=== PATIENT | female | born 1990 | race Caucasian/White ===

== ENCOUNTER 2019-06-04 09:18 | Emergency (ER) | payer OTHER ==
[2019-06-04 09:28] VITALS: TEMP 98.4; BMI 25.1
--- NOTE | 2019-06-04 10:12 | PDOC ---
History of Present Illness - General Chief Complaint: Vaginal Bleeding Stated Complaint: VAG BLEED Time Seen by Provider: 06/04/19 09:57 - History of Present Illness Initial Comments: Ariadna Wells is a A1 28 y/o female with no significant PMH presenting today with post-coital vaginal bleeding that started yesterday. Reports vaginal bleeding after sexual intercourse and when she is urinating but not otherwise. Reports that her periods have lasted longer than usual since her IUD (8 days from 4 days). No other complaints. No fever/chills. No chest pain/shortness of breath. No dysuria. No blood in the stool. No abdominal pain. LNMP 1 week ago. Past History - Past Medical History Allergies/Adverse Reactions: Allergies Allergy/AdvReac Type Severity Reaction Status Date / Time No Known Allergies Allergy Verified 06/04/19 09:25 Home Medications: Ambulatory Orders Vitamins (Sjr) - 1 tab PO DAILY 12/25/14 Acetaminophen [Tylenol .Regular Strength -] 650 mg PO Q3H PRN #0 tablet Benzocaine [Americaine 20% [place] -] 1 spray TP PRN PRN #0 bottle 12/27/14 Ferrous Sulfate 325 mg PO BID #60 tablet 12/27/14 Ferrous Sulfate [Feosol] 325 mg PO BID #60 ud 12/27/14 Ibuprofen [Motrin -] 200 mg PO Q4H PRN #0 tablet 12/27/14 Vitamins (Sjr) - 1 tab PO DAILY tablet 12/27/14 Witch [place] 50% (Tucks) [Tucks Pads -] 1 pad TP PRN PRN #0 pad 12/27/14 Asthma: No Cancer: No Cardiac Disorders: No COPD: No Diabetes: No HTN: No Seizures: No Thyroid Disease: No - Reproductive History Is Patient Now?: No - Immunization History Immunization Up to Date: Yes - Psycho Social/Smoking Cessation Hx Smoking Status: No Smoking History: Never smoked Have you smoked in the past 12 months: No Number of Cigarettes Smoked Daily: 0 Hx Alcohol Use: Yes (prior to ) Drug/Substance Use Hx: No Substance Use Type: None Hx Substance Use Treatment: No Review of Systems - Review of Systems Comments:: GENERAL/CONSTITUTIONAL: No fever or chills. No weakness._ HEAD, EYES, EARS, NOSE AND THROAT: No change in vision. No change in hearing. No sore throat._ CARDIOVASCULAR: No chest pain or shortness of breath_ RESPIRATORY: Denies cough, hemoptysis_ GASTROINTESTINAL: No nausea, vomiting, diarrhea or constipation._ GENITOURINARY: Reports vaginal bleeding. Denies dysuria. MUSCULOSKELETAL: No joint or muscle swelling or pain. No neck or back pain._ SKIN: No rash_ NEUROLOGIC: No headache, vertigo, loss of consciousness, or change in strength/ sensation._ ENDOCRINE: No increased thirst. No abnormal weight change_ HEMATOLOGIC/LYMPHATIC: No anemia, easy bleeding, or history of blood clots._ ALLERGIC/IMMUNOLOGIC: No hives or skin allergy._ *Physical Exam - Vital Signs Last Vital Signs Temp Pulse Resp BP Pulse Ox 98.4 F 76 18 137/80 100 06/04/19 09:23 06/04/19 09:23 06/04/19 09:23 06/04/19 09:23 06/04/19 09:23 - Physical Exam GENERAL: Awake, alert, and oriented to person/place/time, in no acute distress_ HEAD: No signs of trauma, normoc ephalic, atraumatic _ EYES: PERRLA, EOMI, sclera anicteric, conjunctiva clear_ ENT: Hearing grossly normal, nares patent, oropharynx clear without exudates. No uvular deviation. Moist mucosa_ NECK: Normal ROM, supple, no lymphadenopathy, JVD, or masses_ LUNGS: No distress, speaks in full sentences, clear to auscultation bilaterally _ HEART: Regular rate and rhythm, normal S1 and S2, no murmurs appreciated, peripheral pulses normal and equal bilaterally._ ABDOMEN: Soft, nontender, normoactive bowel sounds. No guarding, no rebound. No masses_ EXTREMITIES: Normal inspection, Normal range of motion, no edema. No clubbing or cyanosis_ NEUROLOGICAL: Cranial nerves II through XII grossly intact. Normal speech, normal gait, no focal sensorimotor deficits _ SKIN: Warm, Dry, normal turgor, no rashes or lesions noted_ PELVIC: Normal external exam with minimal bleeding noted. No laceration or trauma to the vaginal vault. Minimal dark red blood in the posterior fornix. Os closed. Negative CMT. No adnexal tenderness bilaterally. ED Treatment Course - LABORATORY CBC & Chemistry Diagram: 06/04/19 10:20 06/04/19 10:07 Medical Decision Making - Medical Decision Making 06/04/19 10:26 28F A1 presenting with post-coital vaginal bleeding that started yesterday. -cbc, cmp -ua, ucx, upreg -GC swab 06/04/19 13:20 Labs reviewed. Laboratory Last Values WBC 5.7 K/mm3 (4.0-10.0) 06/04/19 10:20 RBC 4.37 M/mm3 (3.60-5.2) 06/04/19 10:20 Hgb 13.6 GM/dL (10.7-15.3) 06/04/19 10:20 Hct 40.7 % (32.4-45.2) D 06/04/19 10:20 MCV 93.1 fl (80-96) 06/04/19 10:20 MCH 31.2 pg (25.7-33.7) 06/04/19 10:20 MCHC 33.5 g/dl (32.0-36.0) 06/04/19 10:20 RDW 13.5 % (11.6-15.6) 06/04/19 10:20 Plt Count 327 K/MM3 (134-434) D 06/04/19 10:20 MPV 7.4 fl (7.5-11.1) L 06/04/19 10:20 Absolute Neuts (auto) 2.9 K/mm3 (1.5-8.0) 06/04/19 10:20 Neutrophils % 50.1 % (42.8-82.8) 06/04/19 10:20 Lymphocytes % 38.0 % (8-40) 06/04/19 10:20 Monocytes % 9.7 % (3.8-10.2) 06/04/19 10:20 Eosinophils % 1.7 % (0-4.5) 06/04/19 10:20 Basophils % 0.5 % (0-2.0) 06/04/19 10:20 Nucleated RBC % 0 % (0-0) 06/04/19 10:20 Sodium 140 mmol/L (136-145) 06/04/19 10:07 Potassium 4.2 mmol/L (3.5-5.1) 06/04/19 10:07 Chloride 108 mmol/L (98-107) H 06/04/19 10:07 Carbon Dioxide 27 mmol/L (21-32) 06/04/19 10:07 Anion Gap 5 MMOL/L (8-16) L 06/04/19 10:07 BUN 6.3 mg/dL (7-18) L 06/04/19 10:07 Creatinine 0.7 mg/dL (0.55-1.3) 06/04/19 10:07 Est GFR (CKD-EPI)AfAm 137.62 06/04/19 10:07 Est GFR (CKD-EPI)NonAf 118.74 06/04/19 10:07 Random Glucose 88 mg/dL (74-106) 06/04/19 10:07 Calcium 9.4 mg/dL (8.5-10.1) 06/04/19 10:07 Total Bilirubin 0.4 mg/dL (0.2-1) 06/04/19 10:07 AST 30 U/L (15-37) 06/04/19 10:07 ALT 41 U/L (13-61) 06/04/19 10:07 Alkaline Phosphatase 85 U/L (45-117) 06/04/19 10:07 Total Protein 7.8 g/dl (6.4-8.2) 06/04/19 10:07 Albumin 3.8 g/dl (3.4-5.0) 06/04/19 10:07 Urine Color Yellow 06/04/19 12:00 Urine Appearance Clear 06/04/19 12:00 Urine pH 8.0 (5.0-8.0) 06/04/19 12:00 Ur Specific [place] 1.007 (1.010-1.035) L 06/04/19 12:00 Urine Protein Negative (NEGATIVE) 06/04/19 12:00 Urine Glucose (UA) Negative (NEGATIVE) 06/04/19 12:00 Urine Ketones Negative (NEGATIVE) 06/04/19 12:00 Urine Blood 1+ (NEGATIVE) H 06/04/19 12:00 Urine Nitrite Negative (NEGATIVE) 06/04/19 12:00 Urine Bilirubin Negative (NEGATIVE) 06/04/19 12:00 Urine Urobilinogen 0.2 mg/dL (0.2-1.0) 02/09/20 12:00 Ur Leukocyte Esterase Negative (NEGATIVE) 06/04/19 12:00 Urine WBC (Auto) 0 /hpf (0-5) 06/04/19 12:00 Urine RBC (Auto) 2 /hpf (0-4) 06/04/19 12:00 Urine Casts (Auto) 0 /lpf (0-8) 06/04/19 12:00 U Epithel Cells (Auto) 0.3 /HPF (0-5/HPF) 06/04/19 12:00 Urine Bacteria (Auto) 2.4 /hpf (NEGATIVE) 06/04/19 12:00 Urine HCG, Qual Negative 06/04/19 13:16 Pt reassessed. Plan to d/c home with OBGYN f/u. All questions answered. Return precautions given. Pt verbalized understanding and agreement with plan. Discharge - Discharge Information Problems reviewed: Yes Clinical Impression/Diagnosis: PCB (post coital bleeding) Condition: Stable Disposition: HOME - Admission No - Follow up/Referral Referrals: Wild Kohli MD [Primary Care Provider] - Ely Ventura MD [Staff Physician] - - Patient Discharge Instructions Patient Printed Discharge Instructions: DI for Vaginal Bleeding Additional Instructions: Please make a follow up appointment with your OBGYN Dr. Mack. Please abstain from sexual intercourse until you are evaluated by your OBGYN. If you experience any new, worsening, or concerning symptoms, including pain in the pelvic area, fever, chills, or any other concerns, please return to the emergency department. - Post Discharge Activity
[2019-06-04 10:52] LABS: BASO % 0.5 % (0-2.0); EOS % 1.7 % (0-4.5); HEMATOCRIT 40.7 % (32.4-45.2); HEMOGLOBIN 13.6 GM/dL (10.7-15.3); MCH 31.2 pg (25.7-33.7); MCHC 33.5 g/dl (32.0-36.0); MEAN CELL VOLUME 93.1 fl (80-96); MEAN PLT VOLUME 7.4 fl (7.5-11.1); MONO % 9.7 % (3.8-10.2); NEUT % 50.1 % (42.8-82.8); PLATELET COUNT 327 K/MM3 (134-434); RBC 4.37 M/mm3 (3.60-5.2); RDW 13.5 % (11.6-15.6); WHITE BLOOD COUNT 5.7 K/mm3 (4.0-10.0)
[2019-06-04 11:10] LABS: ALBUMIN 3.8 g/dl (3.4-5.0); BILIRUBIN,TOTAL 0.4 mg/dL (0.2-1); BLOOD UREA NITROGEN 6.3 mg/dL (7-18); CALCIUM 9.4 mg/dL (8.5-10.1); CREATININE 0.7 mg/dL (0.55-1.3); POTASSIUM 4.2 mmol/L (3.5-5.1); TOT PROT 7.8 g/dl (6.4-8.2)
--- NOTE | 2019-06-04 12:10 | PDOC ---
Documentation entered by Theo Lara SCRIBE, acting as scribe for Mere Gonzalez MD. Mere Gonzalez MD: This documentation has been prepared by the Marco malik Daniel, SCRIBE, under my direction and personally reviewed by me in its entirety. I confirm that the documentation accurately reflects all work, treatment, procedures, and medical decision making performed by me. Attending Attestation - Resident Resident Name: Aaron Mclean - ED Attending Attestation I have performed the following: I have examined & evaluated the patient, The case was reviewed & discussed with the resident, I agree w/resident's findings & plan, Exceptions are as noted - HPI HPI: 06/04/19 10:29 The patient is a 28 year old A1 female with no past medical history here today for evaluation of vaginal bleeding. The patient reports that her vaginal bleeding began yesterday after intercourse and states that it only occurs when she is urinating or after intercourse. She states that the bleeding is mild and has not used any pads for it. Patient states that she had a mild cramp today but otherwise denies any pain. She denies any similar episodes in the past. Patient does report that she had an IUD placed 2 years ago. Patient denies headache, lightheadedness. Denies fever, chills. Denies chest pain, shortness of breath. Denies nausea, vomiting, diarrhea, abdominal pain. Denies dysuria. LMP: 1 week ago Allergies: NKA PCP: Wild Kohli OBGYN: Ely Ventura - Physicial Exam PE: 06/04/19 11:05 GENERAL: Awake, alert, and fully oriented, in no acute distress ABDOMEN: Soft, nontender, normoactive bowel sounds. No guarding, no rebound. No masses - Medical Decision Making 06/04/19 12:03 Pt presents to the ED complaining of slight vaginal bleeding with wiping and intercourse. Pelvic exam is unremarkable except for scant blood in the posterior fornix. Will discharge home with instructions to follow up with PCP.
[2019-06-04 12:33] LABS: EPI CELLS 0.3 /HPF (0-5/HPF); HYALINE CASTS 0 /lpf (0-8); URINE APPEARANCE CLEAR; URINE BACTERIA 2.4 /hpf (NEGATIVE); URINE BILIRUBIN NEGATIVE (NEGATIVE); URINE COLOR YELLOW; URINE GLUCOSE (UA) NEGATIVE (NEGATIVE); URINE KETONE NEGATIVE (NEGATIVE); URINE LEUK ESTERASE NEGATIVE (NEGATIVE); URINE NITRITE NEGATIVE (NEGATIVE); URINE PROTEIN NEGATIVE (NEGATIVE); URINE RBC 2 /hpf (0-4); URINE UROBILINOGEN 0.2 mg/dL (0.2-1.0); URINE WBC 0 /hpf (0-5)
[2019-06-04 13:37] VITALS: BP 137/91; PULSE 78
== END 2019-06-04 13:37 | disposition home or self-care (01) ==
LOC: JER 09:18
DX: N93.0 Postcoital and contact bleeding (principal)
CPT/HCPCS: 36415; 80053; 81003; 84703; 85025; 87086; 99283-25

== ENCOUNTER 2019-10-16 15:22 | Emergency (ER) | payer OTHER ==
[2019-10-16 15:39] VITALS: BMI 25.1
[2019-10-16 16:16] LABS: BASO % 0.4 % (0-2.0); EOS % 1.5 % (0-4.5); HEMATOCRIT 34.2 % (32.4-45.2); HEMOGLOBIN 11.3 GM/dL (10.7-15.3); LYMPH % 20.3 % (8-40); MCH 30.8 pg (25.7-33.7); MCHC 33.2 g/dl (32.0-36.0); MEAN CELL VOLUME 92.8 fl (80-96); MEAN PLT VOLUME 7.3 fl (7.5-11.1); MONO % 7.1 % (3.8-10.2); NEUT % 70.7 % (42.8-82.8); PLATELET COUNT 265 K/MM3 (134-434); RBC 3.68 M/mm3 (3.60-5.2); RDW 13.1 % (11.6-15.6); WHITE BLOOD COUNT 9.4 K/mm3 (4.0-10.0)
[2019-10-16] MEDS ORDERED: SODIUM CHLORIDE 0.9% 500 ML INFUS.BAG IV ONE (16:17)
[2019-10-16] MEDS ORDERED: ONDANSETRON 4 MG/2 ML VIAL IVPUSH ONE ×2 (16:17→21:07)
[2019-10-16] MEDS ORDERED: morphine CARPU-JECT 2 MG/1 ML DISP.SYRIN IVPUSH ONE ×2 (16:18→21:06)
[2019-10-16 16:47] LABS: ALBUMIN 3.8 g/dl (3.4-5.0); BILIRUBIN,TOTAL 0.3 mg/dL (0.2-1); BLOOD UREA NITROGEN 11.4 mg/dL (7-18); CALCIUM 9.1 mg/dL (8.5-10.1); CREATININE 0.7 mg/dL (0.55-1.3); POTASSIUM 3.8 mmol/L (3.5-5.1)
[2019-10-16] MEDS ORDERED: MORPHINE SULFATE 2 MG/ML VIAL ONE ×2 (17:08→21:22)
[2019-10-16 18:49] LABS: PH,URINE 8.5 (5.0-8.0); URINE APPEARANCE CLOUDY; URINE BILIRUBIN NEGATIVE (NEGATIVE); URINE COLOR YELLOW; URINE GLUCOSE (UA) NEGATIVE (NEGATIVE); URINE KETONE NEGATIVE (NEGATIVE); URINE LEUK ESTERASE NEGATIVE (NEGATIVE); URINE NITRITE NEGATIVE (NEGATIVE); URINE PROTEIN NEGATIVE (NEGATIVE); URINE UROBILINOGEN 0.2 mg/dL (0.2-1.0)
[2019-10-16 18:52] LABS: HCG,QUALITATIVE URINE Negative
[2019-10-16] MEDS ORDERED: KETOROLAC TROMETHAMINE 30 MG/1 ML VIAL IVPUSH ONE (21:48)
[2019-10-16] MEDS ORDERED: KETOROLAC TROMETHAMINE 30 MG/1 ML VIAL ONE (22:30)
[2019-10-16 23:35] VITALS: BP 125/86; PULSE 67; TEMP 97.3
== END 2019-10-16 23:36 | disposition home or self-care (01) ==
LOC: JER 15:22
PROC: 3E033NZ Introduction of Analgesics, Hypnotics, Sedatives into Peripheral Vein, Percutaneous Approach (ICD-10-PCS; principal; 2019-10-16)
PROC: 3E033GC Introduction of Other Therapeutic Substance into Peripheral Vein, Percutaneous Approach (ICD-10-PCS; 2019-10-16)
DX: R10.31 Right lower quadrant pain (principal)
CPT/HCPCS: 36415; 74177-TC; 76830-TC; 80053; 81003; 84703; 85025; 87086; 99285-25; Q9967

== ENCOUNTER 2020-08-26 09:44 | Emergency (ER) | payer OTHER ==
[2020-08-26 09:56] VITALS: BP 139/90; PULSE 89; TEMP 98.1; BMI 25.9
== END 2020-08-26 10:15 | disposition left against medical advice (07) ==
LOC: JER 09:44
DX: R05 Cough (principal)
CPT/HCPCS: 99282-25

== ENCOUNTER 2021-05-14 08:53 | Emergency (ER) | payer OTHER ==
[2021-05-14 08:59] VITALS: BP 126/81; PULSE 81; TEMP 98.6; BMI 25.1
== END 2021-05-14 10:05 | disposition home or self-care (01) ==
LOC: JERFT 08:53
DX: R59.1 Generalized enlarged lymph nodes (principal); R53.83 Other fatigue
CPT/HCPCS: 36415; 86308; 99283-25